=== PATIENT | male | born 1960 | race African-American/Black ===

== ENCOUNTER 2021-05-12 16:13 | Inpatient (IN) | payer BC, MEDICAID ==
[~2021-05-12] VITALS: Ht 180.3 cm; Wt 148.3 kg
[2021-05-12 23:20] LABS: HEMATOCRIT. 35.4 % (42.0-52.0); MEAN CORPUSCULAR HEMOGLOBIN 22.9 pg (28.0-32.0); MEAN CORPUSCULAR VOLUME 73.3 fL (80.0-94.0); MEAN PLATELET VOLUME 9.1 fl (7.4-10.4); PLATELET 303 x1000/uL (130-400); RED BLOOD CELL COUNT 4.83 mill/uL (4.7-6.1); RED CELL DISTRIBUTION WIDTH 24.3 % (11.6-14.6)
[2021-05-12 23:45] LABS: BETA HYDROXYBUTYRATE 1.4 mMol/L (0.0-0.3); CHLORIDE 107 mEq/L (98-107)
[2021-05-13] MEDS ORDERED: FUROSEMIDE 40MG TABLET PO ONE (00:15)
[2021-05-13] MEDS ORDERED: POTASSIUM CHLORIDE 20MEQ TABLET SR PO ONE (00:15)
[2021-05-13] MEDS ORDERED: CEPHALEXIN 250MG CAPSULE PO ONE (00:45)
[2021-05-13 01:12] LABS: CLARITY URINE CLOUDY (CLEAR); COLOR URINE DARK YELLOW (YELLOW); KETONES URINE TRACE (NEGATIVE); LEUKOCYTE ESTERASE URINE 1+ (NEGATIVE); NITRITE URINE POSITIVE (NEGATIVE); OCCULT BLOOD URINE 2+ (NEGATIVE); PH URINE 5.5 (4.5-8.0); PROTEIN URINE 4+ (NEGATIVE); SPECIFIC GRAVITY URINE 1.034 (1.005-1.030)
[2021-05-13 02:10] LABS: *AMPHETAMINES SCREEN URINE NEGATIVE (NEGATIVE); *BARBITURATES SCREEN URINE NEGATIVE (NEGATIVE); *BENZODIAZEPINES SCREEN URINE NEGATIVE (NEGATIVE); *COCAINE SCREEN URINE NEGATIVE (NEGATIVE); CANNABINOID URINE SCREEN NEGATIVE (NEGATIVE); METHADONE URINE SCREEN NEGATIVE (NEGATIVE); OPIATES URINE SCREEN NEGATIVE (NEGATIVE); PHENCYCLIDINE URINE SCREEN NEGATIVE (NEGATIVE)
[2021-05-13 02:16] LABS: PLATELET ESTIMATE NORMAL
[2021-05-13] MEDS ORDERED: IPRATROPIUM/ALBUTEROL 0.5-3(2.5)MG/3ML NEB HHN PRN (09:00)
[2021-05-13] MEDS ORDERED: DOCUSATE SODIUM 100MG CAPSULE PO PRN (09:00)
[2021-05-13] MEDS ORDERED: LORAZEPAM 0.5MG TABLET PO PRN (09:00)
[2021-05-13] MEDS: HYDROCODONE/ACETAMINOPHEN 5/325MG TABLET PO PRN (09:42)
[2021-05-13 10:10] VITALS: BP 138/76
[2021-05-13 12:00] VITALS: BP 115/56
[2021-05-13 12:47] LABS: CREATINE KINASE 412 IU/L (39-308)
[2021-05-13 12:48] LABS: CREATINE KINASE MB FRACTION < 1.0 ng/mL (0.5-3.6)
[2021-05-13] MEDS: FUROSEMIDE 40MG/4ML VIAL IVP SCH ×2 (12:48→17:33)
[2021-05-13] MEDS: POTASSIUM CHLORIDE 20MEQ TABLET SR PO SCH (12:49)
[2021-05-13] MEDS: CARVEDILOL 6.25 MG TABLET PO SCH ×2 (12:49→20:38)
[2021-05-13] MEDS ORDERED: CEFTRIAXONE 1 G PREMIX 50 ML IV SCH (14:00)
[2021-05-13] MEDS ORDERED: CARV20CP MT (15:00)
[2021-05-13] MEDS ORDERED: CEFTRIAXONE 1,000 MG in DEXTROSE 5% WATER 50 ML IV SCH (15:00)
[2021-05-13 16:00] VITALS: BP 163/103
[2021-05-13] MEDS: CLONIDINE 0.1MG TABLET PO PRN (17:33)
[2021-05-13] MEDS: VANCOMYCIN 1,250 MG in DEXT 5% WATER 250 ML IV SCH ×2 (17:40→20:38)
[2021-05-13 20:00] VITALS: BP 143/96
[2021-05-14] VITALS: BP 138/87
[2021-05-14 04:00] VITALS: BP 154/96
[2021-05-14] MEDS: FUROSEMIDE 40MG/4ML VIAL IVP SCH ×2 (05:29→18:33)
[2021-05-14] MEDS: VANCOMYCIN 1,250 MG in DEXT 5% WATER 250 ML IV SCH (05:29)
[2021-05-14 06:44] LABS: HEMATOCRIT. 34.7 % (42.0-52.0); MEAN CORPUSCULAR HEMOGLOBIN 23.2 pg (28.0-32.0); MEAN CORPUSCULAR VOLUME 73.1 fL (80.0-94.0); MEAN PLATELET VOLUME 10.2 fl (7.4-10.4); PLATELET 298 x1000/uL (130-400); RED BLOOD CELL COUNT 4.74 mill/uL (4.7-6.1); RED CELL DISTRIBUTION WIDTH 23.7 % (11.6-14.6)
[2021-05-14 07:03] LABS: CHLORIDE 106 mEq/L (98-107)
[2021-05-14 08:00] VITALS: BP 158/106
[2021-05-14] MEDS ORDERED: CEFTRIAXONE 1 G PREMIX 50 ML IV SCH (09:00)
[2021-05-14] MEDS: CARVEDILOL 6.25 MG TABLET PO SCH ×2 (09:27→21:07)
[2021-05-14] MEDS: POTASSIUM CHLORIDE 20MEQ TABLET SR PO SCH (09:27)
[2021-05-14] MEDS: HYDROCODONE/ACETAMINOPHEN 5/325MG TABLET PO PRN (09:28)
[2021-05-14 12:00] VITALS: BP 152/98
[2021-05-14 12:29] LABS: NUCLEATED RED BLOOD CELLS 1 /100 WBC
[2021-05-14 12:30] LABS: PLATELET ESTIMATE NORMAL
[2021-05-14] MEDS ORDERED: MAGNESIUM 2 G PREMIX 50 ML IV NR (15:30)
[2021-05-14] MEDS: CEFTRIAXONE 1,000 MG in DEXTROSE 5% WATER 50 ML IV SCH (15:52)
[2021-05-14 16:00] VITALS: BP 151/99
[2021-05-14] MEDS: VANCOMYCIN 1250MG in DEXTROSE 5% WATER 250ML IV SCH (18:34)
[2021-05-14 20:00] VITALS: BP 154/101
[2021-05-14] MEDS ORDERED: NALOXONE HCL 0.4MG/ML VIAL IV PRN (21:00)
[2021-05-14] MEDS: LISINOPRIL 10MG TABLET PO SCH (21:07)
[2021-05-15] VITALS: BP 153/101
[2021-05-15] MEDS: CLONIDINE 0.1MG TABLET PO PRN (00:46)
[2021-05-15 04:00] VITALS: BP 152/105
[2021-05-15] MEDS: VANCOMYCIN 1250MG in DEXTROSE 5% WATER 250ML IV SCH ×2 (05:07→18:00)
[2021-05-15] MEDS: FUROSEMIDE 40MG/4ML VIAL IVP SCH ×2 (05:07→17:15)
[2021-05-15 07:20] LABS: CHLORIDE 102 mEq/L (98-107)
[2021-05-15 08:00] VITALS: BP 156/91
[2021-05-15 08:12] LABS: HEMATOCRIT. 33.4 % (42.0-52.0); HEMOGLOBIN. 10.6 g/dL (14.0-18.0); MEAN CORPUSCULAR HEMOGLOBIN 23.2 pg (28.0-32.0); MEAN CORPUSCULAR VOLUME 73.1 fL (80.0-94.0); MEAN PLATELET VOLUME 9.4 fl (7.4-10.4); PLATELET 291 x1000/uL (130-400); RED BLOOD CELL COUNT 4.57 mill/uL (4.7-6.1); RED CELL DISTRIBUTION WIDTH 23.4 % (11.6-14.6)
[2021-05-15] MEDS: CARVEDILOL 6.25 MG TABLET PO SCH (08:54)
[2021-05-15] MEDS: HYDROCODONE/ACETAMINOPHEN 5/325MG TABLET PO PRN (08:54)
[2021-05-15] MEDS: LISINOPRIL 10MG TABLET PO SCH (08:55)
[2021-05-15] MEDS: POTASSIUM CHLORIDE 20MEQ TABLET SR PO SCH (08:55)
[2021-05-15 12:00] VITALS: BP 124/83
[2021-05-15] MEDS: CEFTRIAXONE 1,000 MG in DEXTROSE 5% WATER 50 ML IV SCH (15:18)
[2021-05-15 16:00] VITALS: BP 139/90
[2021-05-15] MEDS ORDERED: MAGNESIUM 2 G PREMIX 50 ML IV NR (17:00)
[2021-05-15 17:17] LABS: PLATELET ESTIMATE NORMAL
[2021-05-15 20:00] VITALS: BP 138/80
[2021-05-15] MEDS: CARVEDILOL 12.5MG TABLET PO SCH (21:03)
[2021-05-15] MEDS: LISINOPRIL 20MG TABLET PO SCH (21:03)
[2021-05-15] MEDS: AMPICILLIN SOD/SULBACTAM NA 3 G in SODIUM CHLORIDE 0.9% 100 ML IV SCH (23:17)
[2021-05-16] VITALS (7 sets, daily range): BP systolic 114–141; BP diastolic 67–93
[2021-05-16] MEDS: AMPICILLIN SOD/SULBACTAM NA 3 G in SODIUM CHLORIDE 0.9% 100 ML IV SCH ×3 (05:13→17:04)
[2021-05-16] MEDS: FUROSEMIDE 40MG/4ML VIAL IVP SCH ×2 (06:20→17:04)
[2021-05-16 07:27] LABS: HEMATOCRIT. 34.7 % (42.0-52.0); HEMOGLOBIN. 10.9 g/dL (14.0-18.0); MEAN CORPUSCULAR VOLUME 73.3 fL (80.0-94.0); MEAN PLATELET VOLUME 10.2 fl (7.4-10.4); PLATELET 297 x1000/uL (130-400); RED BLOOD CELL COUNT 4.74 mill/uL (4.7-6.1); RED CELL DISTRIBUTION WIDTH 23.2 % (11.6-14.6)
[2021-05-16 08:58] LABS: CHLORIDE 103 mEq/L (98-107)
[2021-05-16] MEDS: CARVEDILOL 12.5MG TABLET PO SCH ×2 (09:27→21:44)
[2021-05-16] MEDS: POTASSIUM CHLORIDE 20MEQ TABLET SR PO SCH (09:27)
[2021-05-16] MEDS: LISINOPRIL 20MG TABLET PO SCH ×2 (09:27→21:45)
[2021-05-16] MEDS: ACETAMINOPHEN 325MG TABLET PO PRN (09:28)
[2021-05-16 12:09] LABS: PLATELET ESTIMATE NORMAL
[2021-05-16] MEDS ORDERED: LIDOCAINE HCL 1% 20ML VIAL (Pyxis) INJ ONE (13:22)
[2021-05-16] MEDS: SPIRONOLACTONE 25MG TABLET PO SCH (13:34)
[2021-05-16] MEDS: HYDROCODONE/ACETAMINOPHEN 5/325MG TABLET PO PRN (17:05)
[2021-05-16] MEDS ORDERED: NALOXONE HCL 0.4MG/ML VIAL IV PRN (20:00)
[2021-05-16] MEDS ORDERED: MAGNESIUM 2 G PREMIX 50 ML IV NR (20:45)
[2021-05-16] MEDS: AMIODARONE HCL 200 MG TABLET PO SCH (21:44)
[2021-05-17] VITALS: BP 117/76
[2021-05-17] MEDS: AMPICILLIN SOD/SULBACTAM NA 3 G in SODIUM CHLORIDE 0.9% 100 ML IV SCH ×5 (00:29→23:46)
[2021-05-17 04:00] VITALS: BP 135/87
[2021-05-17] MEDS: AMIODARONE HCL 200 MG TABLET PO SCH ×3 (06:33→17:48)
[2021-05-17] MEDS: FUROSEMIDE 40MG/4ML VIAL IVP SCH ×2 (06:33→17:48)
[2021-05-17 08:00] VITALS: BP 141/85
[2021-05-17 08:22] LABS: HEMOGLOBIN. 10.5 g/dL (14.0-18.0); MEAN CORPUSCULAR HEMOGLOBIN 22.9 pg (28.0-32.0); MEAN CORPUSCULAR VOLUME 73.7 fL (80.0-94.0); MEAN PLATELET VOLUME 9.6 fl (7.4-10.4); PLATELET 299 x1000/uL (130-400); RED BLOOD CELL COUNT 4.61 mill/uL (4.7-6.1); RED CELL DISTRIBUTION WIDTH 22.8 % (11.6-14.6)
[2021-05-17] MEDS: LISINOPRIL 20MG TABLET PO SCH ×2 (08:43→21:07)
[2021-05-17] MEDS: SPIRONOLACTONE 25MG TABLET PO SCH (08:43)
[2021-05-17] MEDS: CARVEDILOL 12.5MG TABLET PO SCH ×2 (08:43→21:00)
[2021-05-17] MEDS: POTASSIUM CHLORIDE 20MEQ TABLET SR PO SCH (08:43)
[2021-05-17] MEDS: SILVER SULFADIAZINE 1% CREAM 25GM TOP SCH (08:49)
[2021-05-17 09:04] LABS: CHLORIDE 101 mEq/L (98-107)
[2021-05-17] MEDS: ACETAMINOPHEN 325MG TABLET PO PRN ×2 (09:47→19:56)
[2021-05-17 11:47] LABS: PLATELET ESTIMATE NORMAL
[2021-05-17 12:00] VITALS: BP 110/74
[2021-05-17 16:00] VITALS: BP 121/74
[2021-05-17] MEDS ORDERED: IOHEXOL-300 100 ML BOTTLE ONE (16:48)
[2021-05-17 20:00] VITALS: BP 116/73
[2021-05-17] MEDS: HYDROCODONE/ACETAMINOPHEN 5/325MG TABLET PO PRN (21:22)
[2021-05-18] VITALS: BP 121/74
[2021-05-18 04:00] VITALS: BP 129/80
[2021-05-18] MEDS: FUROSEMIDE 40MG/4ML VIAL IVP SCH ×2 (06:06→17:28)
[2021-05-18] MEDS: AMPICILLIN SOD/SULBACTAM NA 3 G in SODIUM CHLORIDE 0.9% 100 ML IV SCH ×4 (06:06→23:00)
[2021-05-18] MEDS: AMIODARONE HCL 200 MG TABLET PO SCH ×3 (06:06→17:28)
[2021-05-18 06:46] LABS: HEMATOCRIT. 32.2 % (42.0-52.0); HEMOGLOBIN. 10.2 g/dL (14.0-18.0); MEAN CORPUSCULAR HEMOGLOBIN 23.4 pg (28.0-32.0); MEAN CORPUSCULAR VOLUME 73.7 fL (80.0-94.0); MEAN PLATELET VOLUME 9.3 fl (7.4-10.4); PLATELET 281 x1000/uL (130-400); RED BLOOD CELL COUNT 4.37 mill/uL (4.7-6.1); RED CELL DISTRIBUTION WIDTH 22.7 % (11.6-14.6)
[2021-05-18 06:52] LABS: CHLORIDE 101 mEq/L (98-107)
[2021-05-18 08:00] VITALS: BP 137/88
[2021-05-18] MEDS: POTASSIUM CHLORIDE 20MEQ TABLET SR PO SCH (08:43)
[2021-05-18] MEDS: LISINOPRIL 20MG TABLET PO SCH ×2 (08:44→20:18)
[2021-05-18] MEDS: SPIRONOLACTONE 25MG TABLET PO SCH (08:44)
[2021-05-18] MEDS: CARVEDILOL 12.5MG TABLET PO SCH ×2 (08:45→20:08)
[2021-05-18 12:00] VITALS: BP 119/69
[2021-05-18] MEDS: SILVER SULFADIAZINE 1% CREAM 25GM TOP SCH (13:03)
[2021-05-18 13:14] LABS: PLATELET ESTIMATE NORMAL
[2021-05-18 16:00] VITALS: BP 123/80
[2021-05-18 20:00] VITALS: BP 117/66
[2021-05-18] MEDS: ACETAMINOPHEN 325MG TABLET PO PRN (23:47)
[2021-05-19] VITALS: BP 125/83
[2021-05-19 04:00] VITALS: BP 108/77
[2021-05-19] MEDS: AMPICILLIN SOD/SULBACTAM NA 3 G in SODIUM CHLORIDE 0.9% 100 ML IV SCH ×4 (05:02→23:29)
[2021-05-19 05:57] LABS: CHLORIDE 100 mEq/L (98-107)
[2021-05-19 06:10] LABS: EOSINOPHILS % 1.3 % (0.0-5.0); HEMOGLOBIN. 10.4 g/dL (14.0-18.0); LYMPHOCYTES % 10.6 % (20.0-50.0); MEAN PLATELET VOLUME 9.7 fl (7.4-10.4); MONOCYTES % 13.7 % (2.0-8.0); NEUTROPHILS % 73.4 % (40.0-76.0); PLATELET 330 x1000/uL (130-400); RED BLOOD CELL COUNT 4.52 mill/uL (4.7-6.1); RED CELL DISTRIBUTION WIDTH 21.7 % (11.6-14.6)
[2021-05-19] MEDS: FUROSEMIDE 40MG/4ML VIAL IVP SCH ×2 (06:22→17:14)
[2021-05-19 08:00] VITALS: BP 145/79
[2021-05-19] MEDS: POTASSIUM CHLORIDE 20MEQ TABLET SR PO SCH (09:24)
[2021-05-19] MEDS: CARVEDILOL 12.5MG TABLET PO SCH ×3 (09:24→20:57)
[2021-05-19] MEDS: SPIRONOLACTONE 25MG TABLET PO SCH (09:24)
[2021-05-19] MEDS: SILVER SULFADIAZINE 1% CREAM 25GM TOP SCH (09:25)
[2021-05-19] MEDS: LISINOPRIL 20MG TABLET PO SCH ×2 (09:25→20:51)
[2021-05-19] MEDS: AMIODARONE HCL 200 MG TABLET PO SCH ×2 (09:25→17:14)
[2021-05-19 12:00] VITALS: BP 123/79
[2021-05-19 16:00] VITALS: BP 121/79
[2021-05-19] MEDS: ACETAMINOPHEN 325MG TABLET PO PRN (17:14)
[2021-05-19 20:00] VITALS: BP 128/83
[2021-05-20] VITALS: BP 138/81
[2021-05-20 04:00] VITALS: BP 141/87
[2021-05-20] MEDS: AMPICILLIN SOD/SULBACTAM NA 3 G in SODIUM CHLORIDE 0.9% 100 ML IV SCH ×3 (06:34→18:20)
[2021-05-20] MEDS: FUROSEMIDE 40MG/4ML VIAL IVP SCH (06:34)
[2021-05-20 07:05] LABS: HEMATOCRIT. 33.3 % (42.0-52.0); HEMOGLOBIN. 8.9 g/dL (14.0-18.0); MEAN CORPUSCULAR VOLUME 74.4 fL (80.0-94.0); RED BLOOD CELL COUNT 4.47 mill/uL (4.7-6.1); RED CELL DISTRIBUTION WIDTH 22.6 % (11.6-14.6)
[2021-05-20 07:45] LABS: CHLORIDE 103 mEq/L (98-107)
[2021-05-20 08:00] VITALS: BP 157/96
[2021-05-20] MEDS: POTASSIUM CHLORIDE 20MEQ TABLET SR PO SCH (09:00)
[2021-05-20] MEDS: SPIRONOLACTONE 25MG TABLET PO SCH (09:00)
[2021-05-20] MEDS: AMIODARONE HCL 200 MG TABLET PO SCH ×2 (09:29→18:20)
[2021-05-20] MEDS: CARVEDILOL 12.5MG TABLET PO SCH ×2 (09:29→21:00)
[2021-05-20] MEDS: LISINOPRIL 20MG TABLET PO SCH ×2 (09:29→21:00)
[2021-05-20] MEDS: SILVER SULFADIAZINE 1% CREAM 25GM TOP SCH (09:30)
[2021-05-20 12:00] VITALS: BP 118/68
[2021-05-20 12:49] LABS: FOLIC ACID (FOLATE) SERUM 3.9 ng/mL (>5.38)
[2021-05-20 13:36] LABS: TOTAL IRON BINDING CAPACITY 378 ug/dL (250-450)
[2021-05-20 13:40] LABS: NUCLEATED RED BLOOD CELLS 1 /100 WBC
[2021-05-20 13:41] LABS: PLATELET ESTIMATE NORMAL
[2021-05-20 13:42] LABS: MEAN PLATELET VOLUME 9.1 fl (7.4-10.4); PLATELET 230 x1000/uL (130-400)
[2021-05-20 16:00] VITALS: BP 123/73
[2021-05-20 20:00] VITALS: BP 171/87
[2021-05-21] VITALS: BP 142/83
[2021-05-21] MEDS: AMPICILLIN SOD/SULBACTAM NA 3 G in SODIUM CHLORIDE 0.9% 100 ML IV SCH ×5 (00:28→23:54)
[2021-05-21 04:00] VITALS: BP 132/72
[2021-05-21 07:45] LABS: BASOPHILS % 1.4 % (0.0-2.0); EOSINOPHILS % 2.4 % (0.0-5.0); HEMATOCRIT. 31.9 % (42.0-52.0); HEMOGLOBIN. 9.9 g/dL (14.0-18.0); LYMPHOCYTES % 11.8 % (20.0-50.0); MEAN CORPUSCULAR HEMOGLOBIN 22.8 pg (28.0-32.0); MEAN PLATELET VOLUME 9.1 fl (7.4-10.4); MONOCYTES % 12.3 % (2.0-8.0); NEUTROPHILS % 72.1 % (40.0-76.0); PLATELET 326 x1000/uL (130-400); RED BLOOD CELL COUNT 4.31 mill/uL (4.7-6.1); RED CELL DISTRIBUTION WIDTH 21.8 % (11.6-14.6)
[2021-05-21 07:52] LABS: CHLORIDE 102 mEq/L (98-107)
[2021-05-21 08:00] VITALS: BP 128/66
[2021-05-21] MEDS: LISINOPRIL 20MG TABLET PO SCH ×2 (09:03→21:00)
[2021-05-21] MEDS: CARVEDILOL 12.5MG TABLET PO SCH ×2 (09:04→21:00)
[2021-05-21] MEDS: FUROSEMIDE 40MG TABLET PO SCH (09:04)
[2021-05-21] MEDS: AMIODARONE HCL 200 MG TABLET PO SCH ×2 (09:04→16:33)
[2021-05-21] MEDS: SILVER SULFADIAZINE 1% CREAM 25GM TOP SCH (09:15)
[2021-05-21] MEDS: FOLIC ACID 1MG TABLET PO SCH (11:59)
[2021-05-21 12:00] VITALS: BP 138/81
[2021-05-21 16:00] VITALS: BP 132/85
[2021-05-21] MEDS: IRON SUCROSE COMPLEX 100 MG/5 ML ML IV SCH (16:33)
[2021-05-21 20:00] VITALS: BP 140/80
[2021-05-22] VITALS: BP 137/71
[2021-05-22 04:00] VITALS: BP 129/69
[2021-05-22] MEDS: AMPICILLIN SOD/SULBACTAM NA 3 G in SODIUM CHLORIDE 0.9% 100 ML IV SCH ×3 (05:07→17:00)
[2021-05-22 06:37] LABS: CHLORIDE 102 mEq/L (98-107)
[2021-05-22 08:00] VITALS: BP 130/59
[2021-05-22] MEDS: FOLIC ACID 1MG TABLET PO SCH (09:16)
[2021-05-22] MEDS: FUROSEMIDE 40MG TABLET PO SCH (09:17)
[2021-05-22] MEDS: AMIODARONE HCL 200 MG TABLET PO SCH ×2 (09:17→17:00)
[2021-05-22] MEDS: CARVEDILOL 12.5MG TABLET PO SCH ×2 (09:17→21:16)
[2021-05-22] MEDS: LISINOPRIL 20MG TABLET PO SCH ×2 (09:17→21:16)
[2021-05-22] MEDS: SILVER SULFADIAZINE 1% CREAM 25GM TOP SCH (09:18)
[2021-05-22 12:00] VITALS: BP 117/63
[2021-05-22] MEDS: ENOXAPARIN 40MG/0.4ML SYR SUBCUT SCH (12:07)
[2021-05-22] MEDS: IRON SUCROSE COMPLEX 100 MG/5 ML ML IV SCH (15:28)
[2021-05-22 16:00] VITALS: BP 124/89
[2021-05-22 20:00] VITALS: BP 143/80
[2021-05-23] VITALS (7 sets, daily range): BP systolic 127–155; BP diastolic 62–108
[2021-05-23] MEDS: ENOXAPARIN 40MG/0.4ML SYR SUBCUT SCH ×2 (00:55→12:43)
[2021-05-23] MEDS: AMIODARONE HCL 200 MG TABLET PO SCH ×2 (09:33→17:41)
[2021-05-23] MEDS: FOLIC ACID 1MG TABLET PO SCH (09:33)
[2021-05-23] MEDS: CARVEDILOL 12.5MG TABLET PO SCH ×2 (09:33→20:53)
[2021-05-23] MEDS: FUROSEMIDE 40MG TABLET PO SCH (09:33)
[2021-05-23] MEDS: LISINOPRIL 20MG TABLET PO SCH ×2 (09:33→20:54)
[2021-05-23] MEDS: ACETAMINOPHEN 325MG TABLET PO PRN (12:44)
[2021-05-23] MEDS: IRON SUCROSE COMPLEX 100 MG/5 ML ML IV SCH (15:58)
[2021-05-23] MEDS: SILVER SULFADIAZINE 1% CREAM 25GM TOP SCH (16:23)
[2021-05-24] VITALS: BP 131/71
[2021-05-24] MEDS: ENOXAPARIN 40MG/0.4ML SYR SUBCUT SCH ×2 (00:23→12:42)
[2021-05-24 04:00] VITALS: BP 122/72
[2021-05-24 08:00] VITALS: BP 139/76
[2021-05-24] MEDS: ACETAMINOPHEN 325MG TABLET PO PRN (08:51)
[2021-05-24] MEDS: FOLIC ACID 1MG TABLET PO SCH (08:52)
[2021-05-24] MEDS: AMIODARONE HCL 200 MG TABLET PO SCH ×2 (08:52→16:59)
[2021-05-24] MEDS: FUROSEMIDE 40MG TABLET PO SCH (08:52)
[2021-05-24] MEDS: LISINOPRIL 20MG TABLET PO SCH ×2 (08:52→21:44)
[2021-05-24] MEDS: CARVEDILOL 12.5MG TABLET PO SCH ×2 (08:56→21:44)
[2021-05-24] MEDS: SILVER SULFADIAZINE 1% CREAM 25GM TOP SCH (08:56)
[2021-05-24 12:00] VITALS: BP 119/75
[2021-05-24 16:00] VITALS: BP 129/75
[2021-05-24 20:00] VITALS: BP 130/83
[2021-05-25] VITALS: BP 123/84
[2021-05-25] MEDS: ENOXAPARIN 40MG/0.4ML SYR SUBCUT SCH ×3 (00:45→23:50)
[2021-05-25 08:00] VITALS: BP 125/70
[2021-05-25] MEDS: FOLIC ACID 1MG TABLET PO SCH (09:19)
[2021-05-25] MEDS: CARVEDILOL 12.5MG TABLET PO SCH ×2 (09:19→22:02)
[2021-05-25] MEDS: LISINOPRIL 20MG TABLET PO SCH ×2 (09:19→22:03)
[2021-05-25] MEDS: FUROSEMIDE 40MG TABLET PO SCH (09:19)
[2021-05-25] MEDS: AMIODARONE HCL 200 MG TABLET PO SCH ×2 (09:24→16:48)
[2021-05-25] MEDS: SILVER SULFADIAZINE 1% CREAM 25GM TOP SCH (09:26)
[2021-05-25 12:00] VITALS: BP 125/74
[2021-05-25 16:00] VITALS: BP 120/68
[2021-05-25 20:00] VITALS: BP 129/72
[2021-05-26 01:04] VITALS: BP 135/72
[2021-05-26 04:00] VITALS: BP 142/67
[2021-05-26 08:00] VITALS: BP 128/81
[2021-05-26] MEDS: AMIODARONE HCL 200 MG TABLET PO SCH ×2 (09:22→17:18)
[2021-05-26] MEDS: FUROSEMIDE 40MG TABLET PO SCH (09:22)
[2021-05-26] MEDS: LISINOPRIL 20MG TABLET PO SCH ×2 (09:22→21:46)
[2021-05-26] MEDS: FOLIC ACID 1MG TABLET PO SCH (09:22)
[2021-05-26] MEDS: CARVEDILOL 12.5MG TABLET PO SCH ×2 (09:22→21:45)
[2021-05-26] MEDS: SILVER SULFADIAZINE 1% CREAM 25GM TOP SCH (09:26)
[2021-05-26 12:00] VITALS: BP 136/79
[2021-05-26] MEDS: ENOXAPARIN 40MG/0.4ML SYR SUBCUT SCH (12:14)
[2021-05-26 16:00] VITALS: BP 131/85
[2021-05-26 20:00] VITALS: BP 147/85
[2021-05-26] MEDS: ACETAMINOPHEN 325MG TABLET PO PRN (21:46)
[2021-05-27] VITALS: BP 134/71
[2021-05-27] MEDS: ENOXAPARIN 40MG/0.4ML SYR SUBCUT SCH ×3 (00:27→23:59)
[2021-05-27 04:00] VITALS: BP 103/67
[2021-05-27 08:00] VITALS: BP 121/85
[2021-05-27] MEDS: CARVEDILOL 12.5MG TABLET PO SCH ×2 (08:20→21:43)
[2021-05-27] MEDS: AMIODARONE HCL 200 MG TABLET PO SCH ×2 (08:42→17:45)
[2021-05-27] MEDS: LISINOPRIL 20MG TABLET PO SCH ×2 (08:42→21:43)
[2021-05-27] MEDS: FUROSEMIDE 40MG TABLET PO SCH (08:42)
[2021-05-27] MEDS: FOLIC ACID 1MG TABLET PO SCH (08:42)
[2021-05-27 10:19] LABS: BASOPHILS % 1.8 % (0.0-2.0); EOSINOPHILS % 1.3 % (0.0-5.0); HEMATOCRIT. 30.7 % (42.0-52.0); HEMOGLOBIN. 9.6 g/dL (14.0-18.0); LYMPHOCYTES % 8.1 % (20.0-50.0); MEAN CORPUSCULAR HEMOGLOBIN 23.7 pg (28.0-32.0); MEAN CORPUSCULAR VOLUME 75.5 fL (80.0-94.0); MEAN PLATELET VOLUME 8.9 fl (7.4-10.4); MONOCYTES % 9.9 % (2.0-8.0); NEUTROPHILS % 78.9 % (40.0-76.0); PLATELET 393 x1000/uL (130-400); RED BLOOD CELL COUNT 4.07 mill/uL (4.7-6.1); RED CELL DISTRIBUTION WIDTH 22.2 % (11.6-14.6)
[2021-05-27 12:00] VITALS: BP 135/88
[2021-05-27] MEDS: SILVER SULFADIAZINE 1% CREAM 25GM TOP SCH (13:19)
[2021-05-27 16:00] VITALS: BP 154/83
[2021-05-27] MEDS ORDERED: AMI2 PO (16:26)
[2021-05-27] MEDS ORDERED: COR12 PO (16:26)
[2021-05-27] MEDS ORDERED: FERR325T6 MT (16:26)
[2021-05-27] MEDS ORDERED: SILV50CR31 TOP (16:26)
[2021-05-27] MEDS ORDERED: ATOR40TA70 MT (16:26)
[2021-05-27] MEDS ORDERED: FOLI-43 PO (16:26)
[2021-05-27] MEDS ORDERED: FURO40TA5 PO (16:26)
[2021-05-27] MEDS ORDERED: LISI20TA31 PO (16:26)
[2021-05-27 20:00] VITALS: BP 125/83
[2021-05-28] VITALS: BP 133/75
[2021-05-28 04:00] VITALS: BP 127/72
[2021-05-28 06:06] LABS: BASOPHILS % 1.2 % (0.0-2.0); EOSINOPHILS % 0.7 % (0.0-5.0); HEMOGLOBIN. 10.2 g/dL (14.0-18.0); LYMPHOCYTES % 8.8 % (20.0-50.0); MEAN CORPUSCULAR HEMOGLOBIN 23.9 pg (28.0-32.0); MEAN CORPUSCULAR VOLUME 75.1 fL (80.0-94.0); MONOCYTES % 10.4 % (2.0-8.0); NEUTROPHILS % 78.9 % (40.0-76.0); RED BLOOD CELL COUNT 4.26 mill/uL (4.7-6.1)
[2021-05-28 06:15] LABS: CHLORIDE 104 mEq/L (98-107)
[2021-05-28 08:00] VITALS: BP 150/78
[2021-05-28] MEDS: CARVEDILOL 12.5MG TABLET PO SCH (09:00)
[2021-05-28] MEDS: LISINOPRIL 20MG TABLET PO SCH (09:55)
[2021-05-28] MEDS: FUROSEMIDE 40MG TABLET PO SCH (09:55)
[2021-05-28] MEDS: AMIODARONE HCL 200 MG TABLET PO SCH (09:55)
[2021-05-28] MEDS: FOLIC ACID 1MG TABLET PO SCH (09:55)
[2021-05-28] MEDS: SILVER SULFADIAZINE 1% CREAM 25GM TOP SCH (09:56)
[2021-05-28 11:34] LABS: PLATELET 313 x1000/uL (130-400)
[2021-05-28 12:00] VITALS: BP 152/88
[2021-05-28] MEDS: ENOXAPARIN 40MG/0.4ML SYR SUBCUT SCH (12:35)
[2021-05-28 12:58] VITALS: BP 150/78
== END 2021-05-28 14:50 | DRG 133 ==
LOC: ER 16:13 → MICUSO 23:54 → 7WST 05-13 08:51 → MICUSO 05-13 09:32 → 7EST 05-13 12:16
PROVIDERS: ADMIT Internal Medicine; ATTEND Internal Medicine
PROC: 02HV33Z Insertion of Infusion Device into Superior Vena Cava, Percutaneous Approach (ICD-10-PCS; principal; 2021-05-16)
PROC: B548ZZA Ultrasonography of Superior Vena Cava, Guidance (ICD-10-PCS; 2021-05-16)
DX: J96.00 Acute respiratory failure, unspecified whether with hypoxia or hypercapnia (principal); I50.43 Acute on chronic combined systolic (congestive) and diastolic (congestive) heart failure; I42.9 Cardiomyopathy, unspecified; I47.2 Ventricular tachycardia; I42.2 Other hypertrophic cardiomyopathy; I27.21 Secondary pulmonary arterial hypertension; L03.115 Cellulitis of right lower limb; D50.9 Iron deficiency anemia, unspecified; E11.621 Type 2 diabetes mellitus with foot ulcer; L97.929 Non-pressure chronic ulcer of unspecified part of left lower leg with unspecified severity; I11.0 Hypertensive heart disease with heart failure; F17.200 Nicotine dependence, unspecified, uncomplicated; E66.01 Morbid (severe) obesity due to excess calories; E87.6 Hypokalemia; I87.2 Venous insufficiency (chronic) (peripheral); I87.8 Other specified disorders of veins; I89.0 Lymphedema, not elsewhere classified; J45.909 Unspecified asthma, uncomplicated; Z91.19 Patient's noncompliance with other medical treatment and regimen; M71.20 Synovial cyst of popliteal space [Baker], unspecified knee; R31.9 Hematuria, unspecified; N39.0 Urinary tract infection, site not specified; E53.8 Deficiency of other specified B group vitamins; Z20.822 Contact with and (suspected) exposure to COVID-19; R26.81 Unsteadiness on feet; L03.116 Cellulitis of left lower limb; M10.9 Gout, unspecified; R80.9 Proteinuria, unspecified; I08.1 Rheumatic disorders of both mitral and tricuspid valves; Z79.899 Other long term (current) drug therapy
CPT/HCPCS: 36415; 71045; 73701; 76937; 80048; 80053; 80202; 80305; 81003; 82010; 82550; 82553; 82607; 82728; 82746; 83036; 83540; 83550; 83605; 83735; 83880; 84100; 84145; 84484; 84550; 85025; 87070; 87077; 87186; 93005; 93306; 93970; 97022; 97110; 97116; 97162; 97164; 97530; 99285; C1725; J0295; J0696; J1650; J1940; J3370; J3475; J3490; J7050; J7060; Q9967; U0003; U0005